=== PATIENT | male | born 1980 | race Caucasian/White ===

== ENCOUNTER 2016-09-26 18:06 | Emergency (ER) | payer MEDICAID ==
[~2016-09-26 18:06] MED LIST: CYCL-36 PO; MOBI7.5T PO; ULTR50TA PO
[2016-09-26 18:10] VITALS: BP 119/85; PULSE 60; RESP 20; TEMP 98.3; O2SAT 99
--- NOTE | 2016-09-26 19:33 | PD ---
HPI Chief Complaint: Musculoskeletal Complaint Time Seen by Provider: 19:15 Travel History International Travel<30 days: No Contact w/Intl Traveler<30days: No Traveled to known affect area: No History of Present Illness HPI 35-year-old male presents to the emergency room for evaluation of right forearm pain and swelling for the past 2 days. Patient denies any trauma or injury. States he woke up with a little swelling and as he uses his arm throughout the day, the swelling increases. States he has pain with range of motion of the right arm and hand. He has not taken anything or done anything for his symptoms. He denies IV drug use, fever, chills, nausea, vomiting, and paresthesias. PFSH Past Medical History Cardiovascular Problems: Yes Chest Pain: Yes Past Surgical History Other Surgery: Yes (L THUMB) Social History Alcohol Use: Yes Tobacco Use: Yes (1 PPD) Substance Use: Yes (MARIJUANA) Allergies-Medications (Allergen,Severity, Reaction): Coded Allergies: No Known Allergies (Verified , 09/26/16) Reported Meds & Prescriptions Reported Meds & Active Scripts Active Ibuprofen 600 Mg Tab 600 Mg PO Q8HR PRN Review of Systems Except as stated in HPI: all other systems reviewed are Neg Physical Exam Narrative GENERAL: Well-nourished, well-developed male in no acute distress. Afebrile. Ambulatory. SKIN: Focused skin assessment warm/dry. No erythema or ecchymosis. HEAD: Normocephalic. EYES: No scleral icterus. No injection or drainage. NECK: Supple, trachea midline. No JVD or lymphadenopathy. CARDIOVASCULAR: Regular rate and rhythm without murmurs, gallops, or rubs. RESPIRATORY: Breath sounds equal bilaterally. No accessory muscle use. EXTREMITY: Tenderness to palpation of the right distal radius. Full range of motion in all joints. Localized edema over the right radius approximately 4 cm proximal to the base of the thumb. Normal opposition of thumb. Distal extremity neurovascularly intact with intact two point discrimination. Data Data Last Documented VS Vital Signs Date Time Temp Pulse Resp B/P Pulse Ox O2 Delivery O2 Flow Rate FiO2 09/26/16 18:10 98.3 60 20 119/85 99 Orders Forearm (2vws) (09/26/16 ) Splint Or Brace Apply/Monitor (09/26/16 19:51) MDM Medical Decision Making Medical Screen Exam Complete: Yes Emergency Medical Condition: Yes Medical Record Reviewed: Yes Differential Diagnosis Spasm, strain, strain, fracture, contusion Narrative Course 35-year-old male presents to the emergency room for evaluation of right forearm pain and swelling for the past 2 days. Patient denies trauma or injury. Denies IV drug use. Physical exam reveals moderate, localized edema of the distal extensor tendon. Patient has full range of motion of the hand with moderate pain. 2+ radial pulse. Radial, ulnar, and median nerves intact. There is no erythema, ecchymosis, or evidence of infection. X-ray shows no acute bony abnormality or foreign body. Patient was placed in a Velcro wrist splint and discharged with prescription for ibuprofen. Told to follow up with a primary care physician for outpatient MRI if symptoms persist or return to the emergency room for worsening symptoms. Patient is cantankerous upon discharge and dissatisfied with diagnosis stating "that's why you come to places like this" referring to recommendation for outpatient follow-up. Diagnosis Primary Impression: Tendinitis of right wrist Referrals: Primary Care Physician Patient Instructions: General Instructions, Tendinitis (ED) Additional Instructions: Rest and drink plenty of fluids. Take ibuprofen with food as directed, as needed for pain. Apply ice to the affected area for 20 minutes at a time, as needed for pain and swelling. Follow-up with a primary care physician. Med/Other Pt SpecificInfo: Prescription(s) given Scripts Ibuprofen 600 Mg Pyd942 Mg PO Q8HR PRN (PAIN) #21 TAB Ref 0 Prov:Amaya Harden MD 09/26/16 Disposition: 01 DISCHARGE HOME Condition: Stable Karo Perez Sep 26, 2016 19:33
--- NOTE | 2016-09-26 19:48 | RADRPT ---
EXAM DATE/TIME: 09/26/2016 19:28 [facility] COMPARISON: No previous studies available for comparison. INDICATIONS : Right arm redness and swelling. MEDICAL HISTORY : None. SURGICAL HISTORY : None. ENCOUNTER: Initial ACUITY: 3 days PAIN SCORE: 5/10 LOCATION: Right forearm. FINDINGS: Two view examination of the right forearm demonstrates no evidence of fracture or dislocation. Bony mineralization is normal. The soft tissue structures are intact. CONCLUSION: Unremarkable examination of the right forearm. Devante Palacios MD on September 26, 2016 at 19:46 Board Certified Radiologist. This report was verified electronically.
[2016-09-26] MEDS ORDERED: IBUP-232 PO (19:50)
== END 2016-09-26 20:10 | disposition home or self-care (01) ==
LOC: PHED 18:06 → PHEFT 20:10
DX: M77.9 Enthesopathy, unspecified (principal); M79.631 Pain in right forearm; R60.0 Localized edema; F17.210 Nicotine dependence, cigarettes, uncomplicated
CPT/HCPCS: 73090; 99283; L3908